=== PATIENT | female | born 1965 | race Caucasian/White ===

== ENCOUNTER → 2016-08-31 | Emergency (ER) | payer SELFPAY | END | disposition home or self-care (01) | LOC: D.ER 15:38 | DX: Z02.9 Encounter for administrative examinations, unspecified (principal) ==

== ENCOUNTER 2017-01-08 04:35 | Emergency (ER) | payer SELFPAY | END 2017-01-08 05:16 | disposition home or self-care (01) | LOC: D.ER 04:35 | DX: J20.9 Acute bronchitis, unspecified (principal); R09.89 Other specified symptoms and signs involving the circulatory and respiratory systems; J34.89 Other specified disorders of nose and nasal sinuses; R06.2 Wheezing; R51 Headache; F17.200 Nicotine dependence, unspecified, uncomplicated ==

== ENCOUNTER 2018-12-06 17:16 | Inpatient (IN) | payer SELFPAY ==
[~2018-12-06] VITALS: Ht 172.7 cm; Wt 85.3 kg
--- NOTE | ~2018-12-06 | HEMODYNAMI ---
PATIENT:IRISH DOBBS MEDICAL RECORD: [id number] : 61 [facility] [id number] ADMISSION DATE: 12/06/18 Generatedon:12/07/201810:50 Patient name: IRISH DOBBS Patient #: [id number] SSN: : 1965 Date of study: 12/07/2018 Page: Of Hemodynamic Procedure Report Patient Data Patient Demographics Procedure consent was obtained First Name: IRISH Gender: Female Last Name: DILIA : 1965 [facility] Initial: JD Age: 52 year(s) Patient #: [id number] Race: Black Additional ID: [id number] Contact details Address: [address] [place] [address] [address]ET State: [place] City: [facility] Zip code: [address] Past Medical History Allergies: No known allergies Admission Admission Data Admission Date: 12/06/2018 Admission Time: 22:02 Room #: D.2115 Lab Results Lab Result Date: 12/07/2018 Lab Result Time: 0:00 Biochemistry Name Units Result Min Max BUN mg/dl 11 --(-*--)-- 7 18 Creatinine mg/dl 0.9 --(-*--)-- 0.6 1.3 eGFR ml/min 90 --(*---)-- 90 120 AM CBC Name Units Result Min Max Hematocrit % 38.3 *-(----)-- 42 54 Hemoglobin g/dl 13.3 -*(----)-- 13.5 17.5 Procedure Procedure Types Cath Procedure Diagnostic Procedure LHC LHC w/Coronaries Procedure Description Procedure Date Procedure Date: 12/07/2018 Procedure Start Time: 10:40 Procedure End Time: 10:50 Procedure Staff Name Function Vicente Rincon MD Performing Physician Sahara Peña RT Monitor Gera Rock RT Scrub Kilo Ellison RN Nurse Procedure Data Cath Procedure Fluoroscopy Diagnostic fluoroscopy Total fluoroscopy Time: 1 time: 1 min min Diagnostic fluoroscopy Total fluoroscopy dose: 207 dose: 207 mGy mGy Contrast Material Contrast Material Type Amount (ml) Isovue 300 36 Entry Location Entry Primary Successful Side Size Upsize Upsize Entry Closure Succes sful Closure Location (Fr) 1 (Fr) 2 (Fr) Remarks Device Remarks Femoral Right 5 Fr Exoseal artery Estimated blood loss: 10 ml Diagnostic catheters Device Type Used For End Catheter Placement MULTIPACK Pigtail 5 Fr Procedure catheter MULTIPACK JL 4.0 5Fr Procedure catheter MULTIPACK 3DRC 5Fr Procedure catheter Procedure Complications No complications Procedure Medications Medication Administration Route Dosage Zofran I.V. 4 mg Oxygen etCO2 Nasal cannula 2 l/min Lidocaine 2% added to field 20 Heparin Flush Bag added to field 2 bags (1000units/500ml NS) 0.9% NaCl I.V. 100 ml/hr Versed I.V. 2 mg Fentanyl I.V. 100 mcg Versed I.V. 1 mg Fentanyl I.V. 25 mcg Hemodynamics Rest HGB: 13.3 (g/dl) Heart Rate: 65 (bpm) Snapshots Pre Cath Intra NCS Post Cath Vital Signs Time Heart Resp SPO2 etCO2 NIBP Rhythm Pain Status Sedation Rate (ipm) (%) (mmHg) (mmHg) Level (bpm) 10:30:38 63 16 97 0 134/67(90) NSR 4 (11) , 10(A) Distressing 10:34:56 67 12 98 0 114/71(85) NSR 4 (11) , 10(A) Distressing 10:39:10 66 15 95 30 108/70(89) NSR 3 (11) , 10(A) Tolerable 10:43:24 65 17 96 43.5 101/65(81) NSR 0 (11) , No 9(A) pain 10:47:32 69 15 97 41.2 119/70(97) NSR 0 (11) , No 10(A) pain Medications Time Medication Route Dose Verified Delivered Reason Notes Eff ectiveness by by 10:30:39 Zofran I.V. 4 mg Vicente Boateng Per Sergey Ellison RN physician 10:35:31 Oxygen etCO2 2 Vicente Boateng used for Nasal l/min Sergey Ellison RN procedure cannula 10:35:38 Lidocaine 2% added 20ml Vicente Zhang for local to vial Sergey Rincon MD anesthetic field 10:35:44 Heparin Flush added 2 Vicente Boateng used for Bag to bags Sergey Ellison RN procedure (1000units/500ml field NS) 10:35:52 0.9% NaCl I.V. 100 Vicente Boateng Per ml/hr Sergey Ellison RN physician 10:38:47 Versed I.V. 2 mg Vicente Boateng for Sergey Ellison RN sedation 10:38:53 Fentanyl I.V. 100 Vicente Lainezie for mcg Sergey Ellison RN sedation 10:43:03 Fentanyl I.V. 25 Vicente Boateng for mcg Sergey Ellison RN sedation 10:43:58 Versed I.V. 1 mg Vicente Boateng for Sergey Ellison RN sedation Procedure Log Time Note 10:00:25 Kilo Ellison RN sent for patient. Start room use. 10:08:14 Signed procedure consent form obtained from patient. 10:08:15 Diagnostic Cath status Urgent 10:08:15 Time tracking: Regular hours (M-F 7:00 - 5:00) 10:08:19 Plan of Care:Hemodynamics will remain stable., Cardiac rhythm will remain stable., Comfort level will be maintained., Respiratory function will remain adequate., Patient/ family verbilizes understanding of procedure., Procedure tolerated without complication., Recovers from procedure without complications.. 10:11:52 Lab Result : BUN 11 mg/dl 10:11:52 Lab Result : Creatinine 0.9 mg/dl 10:11:52 Lab Result : Hemoglobin 13.3 g/dl 10:11:52 Lab Result : eGFR AM 90 ml/min 10:11:52 Lab Result : Hematocrit 38.3 % 10:20:48 Patient received from Med II to CCL 1 Alert and oriented. Tansferred to table in Supine position. 10:20:49 Warm blankets applied, and lexa hugger turned on for patient comfort. 10:20:50 Correct patient and procedure confirmed by team. 10:20:53 ECG and BP/O2 sat monitors applied to patient. 10:29:24 Vital chart was started 10:30:39 Zofran 4 mg I.V. was administered by Kilo Ellison RN; Per physician; 10:31:49 Rhythm: sinus rhythm 10:31:50 Full Disclosure recording started 10:31:51 Baseline sample Acquired. 10:31:53 Pre-procedure instructions explained to patient. 10:31:53 Pre-op teaching completed and patient verbalized understanding. 10:31:55 Family in patients room. 10:31:56 Patient NPO since Midnight. 10:32:06 Patient allergic to No known allergies 10:32:12 Is patient on blood thinner?Yes 10:32:18 PRE LOADED PLAVIX 10:32:21 Is the patient allergic to Iodine/contrast media? No. 10:32:23 Patient diabetic? No. 10:32:27 Patient not . Patient has had hysterectomy. 10:32:32 Previous problem with sedation/anesthesia? No ? 10:32:33 Snore? No 10:32:37 Sleep apnea? No 10:32:38 Deviated septum? No 10:32:39 Opens mouth fully? Yes 10:32:39 Sticks out tongue? Yes 10:32:41 Airway obstruction? No ? 10:32:42 Dentures? No ? 10:32:45 Pre procedure: right dorsailis pedis pulse 3+ Increased pulse; moderate pressure to obliterate 10:32:48 Patient pain scale 4/10 ?. 10:32:54 IV patent on arrival in right wrist with 0.9% NaCl at O. 10:32:57 Lab results completed and on chart. 10:33:00 Right groin area was prepped with chlora-prep and draped in sterile fashion 10:33:01 Alarms reviewed by R. N. 10:33:01 Sharps counted by scrub and verified by R.N. 10:33:10 Use device set Femoral Dx 10:33:11 ACIST Syringe (61623) opened to sterile field. 10:33:12 Bag Decanter () opened to sterile field. 10:33:13 ACIST Manifold (41222) opened to sterile field. 10:33:14 ACIST Hand Control (17241) opened to sterile field. 10:33:14 Tegaderm 4 x 4 (1626W) opened to sterile field. 10:33:15 Medline Cath Pack ([id number]) opened to sterile field. 10:33:16 DIAGNOSTIC Multipack 5Fr catheter set (IG7070) opened to sterile field. 10:33:18 EMERALD Guide Wire (502-625) opened to sterile field. 10:33:19 SHEATH 5FR [place] (PYL940) opened to sterile field. 10:35:31 Oxygen 2 l/min etCO2 Nasal cannula was administered by Kilo Ellison RN; used for procedure; 10:35:38 Lidocaine 2% 20ml vial added to field was administered by Vicente Rincon MD; for local anesthetic; 10:35:44 Heparin Flush Bag (1000units/500ml NS) 2 bags added to field was administered by Kilo Ellison RN; used for procedure; 10:35:52 0.9% NaCl 100 ml/hr I.V. was administered by Kilo Ellison RN; Per physician; 10:37:55 --------ALL STOP TIME OUT------ 10:37:56 Final Timeout: patient, procedure, and site verified with staff and physician. All members of the team are in agreement. 10:37:57 Right groin site verified by team. 10:38:00 Fire Safety Assessment: A--An alcohol-based skin anteseptic being used preoperatively., C--Open oxygen or nitrous oxide is being used., D--An ESU, laser, or fiber-optic light is being used. 10:38:03 Physical assessment completed. ASA score P 2 - A patient with mild systemic disease as per Vicente Rincon MD. 10:38:08 1) 90+ Normal kidney functon but urine findings or structural abnormalities or genetic trait point to kidney disease. 10:38:12 Maximum allowable contrast does (3.7 X eGFR X 0.75)249 ml. 10:38:14 Sedation plan: IV Moderate Sedation Medication:Versed, Fentanyl 10:38:47 Versed 2 mg I.V. was administered by Kilo Ellison RN; for sedation; 10:38:53 Fentanyl 100 mcg I.V. was administered by Kilo Ellison RN; for sedation; 10:40:00 Zero performed for pressure channel P1 10:40:30 Procedure started. 10:40:50 Local anesthetic to right femoral artery with Lidocaine 2% by Vicente Rincon MD.INITIAL ACCESS ONLY 10:41:13 PATIENT HAS RECENTLY HAD LT. SHOULDER SURGERY. NEEDS RIGHT ARM FOR MOVEMENT 10:41:40 Zero performed for pressure channel P1 10:41:55 A 5 Fr sheath was inserted into the Right Femoral artery 10:42:15 A MULTIPACK Pigtail 5 Fr catheter was advanced over the wire and used for Procedure. 10:42:24 LV gram done using MOYA 10:42:27 Injector settings: Ml/sec: 10, Volume: 20, 10:42:45 EF : 50 % 10:42:46 Catheter removed. 10:43:03 Fentanyl 25 mcg I.V. was administered by Kilo Ellison RN; for sedation; 10:43:12 A MULTIPACK JL 4.0 5Fr catheter was advanced over the wire and used for Procedure. 10:43:49 LCA angiography performed. 10:43:57 Catheter removed. 10:43:58 Versed 1 mg I.V. was administered by Kilo Ellison RN; for sedation; 10:44:09 A MULTIPACK 3DRC 5Fr catheter was advanced over the wire and used for Procedure. 10:44:25 RCA angiography performed. 10:44:26 Catheter removed. 10:44:37 EXOSEAL 5Fr (EX500) opened to sterile field. 10:45:01 Sheath removed intact; hemostasis achieved with Exoseal to the Right Femoral artery. 10:45:04 Procedure ended.(Physican Out) 10:45:18 Fluoroscopy time 01.00 minutes. 10:45:24 Fluoroscopy dose: 207 mGy 10:45:24 Flurop Dose total: 207 10:45:27 Contrast amount:Isovue 300 36ml. 10:45:29 Sharps counted by scrub and verified by R.N. 10:45:32 Post-op/insertion site Right Femoral artery dressed using a 4 x 4 and Tegaderm. 10:45:34 Post-procedure physical assessment completed. ASA score P 2 - A patient with mild systemic disease as per Vicente Rincon MD. 10:45:37 Post procedure rhythm: sinus rhythm 10:45:40 Estimated blood loss: 10 ml 10:46:21 Post procedure instruction explained to patient.Patient verbalizes understanding. 10:46:22 Patient needs reinforcement of post procedure teaching. 10:49:00 Procedure and supply charges have been captured, reviewed, submitted and are correct. 10:49:03 Procedure Complication : No complications 10:50:05 Vital chart was stopped 10:50:05 See physician's report for complete and final results. 10:50:07 Report given to PCU. 10:50:10 Patient transfered to PCU with Bed. 10:50:13 Procedure ended. 10:50:13 Full Disclosure recording stopped 10:50:15 End room use (Document Last) Device Usage Item Name Manufacture Quantity Catalog Hospital Part Current Minimal L ot# / Number Charge Number Stock Stock Serial# Code ACINNA Acist 1 23099 893568 021138 932039 20 Syringe Medical (97215) Systems Inc Bag Microtek 1 2001S 128929 31315 353481 5 Decanter Medical Inc. () ACIST Acist 1 27300 219862 770854 341443 5 Manifold Medical (87698) Systems Inc ACIST Hand Acist 1 78709 022916 608517 960156 5 Control Medical (41382) Systems Inc Tegaderm 4 3M 1 1626W 744517 426488 497384 5 x 4 (1626W) Medline Medline 1 [id number] 831803 94920 177497 5 Cath Pack ([id number]) DIAGNOSTIC Cardinal 1 FY8158 781073 75749 268178 30 Multipack Health 5Fr catheter set (WY6869) EMERALD Cardinal 1 502455 118042 482999 546996 5 Guide Wire Health (502455) SHEATH 5FR Terumo 1 GIN830 050798 280561 600718 5 [place] (QYD902) MULTIPACK Cardinal 1 838944 5 Pigtail 5 Health Fr catheter MULTIPACK Cardinal 1 263776 5 JL 4.0 5Fr Health catheter MULTIPACK Cardinal 1 948746 5 3DRC 5Fr Health catheter EXOSEAL 5Fr Cardinal 1 EX500 597963 097683 382633 10 (EX500) Health Signature Audit [place] Stage Time Signature Unsigned Intra-Procedure 12/07/2018 Sahara Peña 10:50:34 AM RT(R) Signatures Monitor : Sahara Peña Signature : RT Date : Time : [place] [id number] [place] [address]
--- NOTE | 2018-12-06 17:42 | NUR ---
EDP AT BEDSIDE, VERBAL ORDER GIVEN TO THIS NURSE TO NOT GIVE ASA OR SL NITRO.
[2018-12-06 18:07] VITALS: BP 142/81
[2018-12-06 18:07] LABS: BASOPHILS 0.3 % (0-2); EOSINOPHILS 2.1 % (0-7); HEMATOCRIT 38.3 % (36.0-48.0); HEMOGLOBIN 13.3 g/dL (12-16); IMMATURE GRANULOCYTES 0.3 % (0-5); LYMPHOCYTES 32.3 % (15-50); MCH 31.6 pg (26.0-34.0); MCHC 34.7 g/dL (31.0-37.0); MEAN PLATELET VOLUME 9.6 fL (7.4-10.4); MONOCYTES 7.1 % (2-11); NEUTROPHILS 57.9 % (40-80); PLATELET COUNT 272 10x3/uL (130-400); RBC 4.21 10x6/uL (4.00-5.40); WBC 7.2 10x3/uL (4.8-10.8)
[2018-12-06 18:24] LABS: APTT 30.4 SECONDS (22.8-39.4); INR 0.89 (0.85-1.17); PROTIME 11.6 SECONDS (11.6-15.0)
[2018-12-06 18:25] LABS: ALBUMIN 3.7 g/dL (3.4-5.0); ALKALINE PHOSPHATASE 159 U/L (46-116); ALT (SGPT) 26 U/L (10-68); BILIRUBIN - TOTAL 0.25 mg/dL (0.2-1.3); CALC OSMOLALITY 276 mosm/kg (275-300); CALCIUM 8.8 mg/dL (8.5-10.1); CARBON DIOXIDE 27.9 mmol/L (21.0-32.0); CHLORIDE - SERUM 105 mmol/L (98-107); CREATININE - SERUM 0.8 mg/dL (0.6-1.3); GLUCOSE 107 mg/dL (74-106); POTASSIUM - SERUM 4.2 mmol/L (3.5-5.1); PROTEIN - SERUM 7.3 g/dL (6.4-8.2); SODIUM 139 mmol/L (136-145); UREA NITROGEN 11 mg/dL (7-18); eGFR NON AFRICAN AMERICAN 79 mL/min (90-120)
[2018-12-06 18:36] LABS: CKMB 0.7 U/L (0.0-3.6); CREATINE KINASE 174 UL (21-215); MAGNESIUM - SERUM 2.1 mg/dL (1.8-2.4)
[2018-12-06 18:46] LABS: TROPONIN-I < 0.017 ng/mL (0.000-0.060)
--- NOTE | 2018-12-06 19:09 | NUR ---
HAND-OFF REPORT GIVEN TO PO GOODMAN.
[2018-12-06 19:30] VITALS: BP 109/67
--- NOTE | 2018-12-06 20:07 | NUR ---
PROVIDED BLANKET ROLLS FOR POSITION AND COMFORT OF LEFT ARM. PT STATES STILL FEELING PAIN IN RIGHT SHOULDER BUT LESS, RATES PAIN 8/10 SCALE, DOWN FROM 10/10.
[2018-12-06 20:30] VITALS: BP 121/63
--- NOTE | 2018-12-06 20:56 | NUR ---
PT STATES PAIN CONTINUES TO BE 8/10 TO RIGHT CHEST AND RIGHT UPPER BACK. STATES IT FEELS LIKE WHEN SHE HAD PNEUMONIA IN BILATERAL LUNGS LAST JANUARY. REPOSITIONED WITH SOME RELIEF. PAIN EXAGGERATED BY DEEP BREATHING AND COUGHING.
[2018-12-06 21:31] VITALS: BP 114/60
--- NOTE | 2018-12-06 21:57 | NUR ---
PT AMB TO RESTROOM WITHOUT DIFFICULTY AT THIS TIME. PT INFORMED OF ADMIT STATUS AND WAITING FOR ROOM ASSIGNMENT, VOICED UNDERSTANDING.
[2018-12-06] MEDS ORDERED: SYNTHROID75 MCG PO (23:45)
[2018-12-06] MEDS ORDERED: CELEBREX400 MG PO (23:46)
[2018-12-06 23:57] VITALS: BP 126/48; Ht 172.7 cm; Wt 85.3 kg
[2018-12-07 04:00] VITALS: BP 102/63
--- NOTE | 2018-12-07 06:39 | NUR ---
WAS TOLD BY ELECTRONIC ENGRAVER THAT PATIENT HAD REQUESTED PAIN MEDICATION. WHEN ADMINISTERING THE MEDICATION PATIENT BEGAN YELLING STATING THAT SHE ASKED FOR PAIN MEDICATION WHEN SHE ARRIVED TO FLOOR. PATIENT DID NOT ASK ME ON ARRIVAL. I ASKED ELECTRONIC ENGRAVER AND ELECTRONIC ENGRAVER STATED SHE DID NOT ASK HER. PATIENT ARGUED THAT SHE HAD BEEN AWAKE ALL NIGHT. ALTHOUGH WHEN I CHECKED ON THE PATIENT SHE HAD BEEN SLEEPING.
[2018-12-07 08:27] VITALS: BP 127/56
--- NOTE | 2018-12-07 10:51 | HP ---
PATIENT: IRISH LUIS MEDICAL RECORD: [id number] ACCOUNT: [id number] LOCATION:[address] : 61 ADMISSION DATE: 12/06/18 PCP: CRISTY BLACKMON MD HISTORY AND PHYSICAL EXAMINATION DIAGNOSES: 1. Non-Q-wave myocardial infarction. 2. Coronary artery disease. HISTORY OF PRESENT ILLNESS: Mrs. Luis has no previous cardiac history. She has been having left-sided chest pain that she attributed to a shoulder surgery that she had over a year ago with chest pain; however, it worsened yesterday. Troponin is positive for non-Q-wave myocardial infarction. She continues to have chest pain today. PHYSICAL EXAMINATION: GENERAL APPEARANCE: Well-nourished, well-developed, appears stated age. Level of distress, comfortable. PSYCHIATRIC: Mental status, alert, normal affect. Orientation, oriented to time, place and person. EYES: Lids and conjunctiva, noninjected. No discharge, no pallor. ENT: Lips, teeth, gums, normal dentition. Oropharynx, no cyanosis, no pallor. NECK: Carotid arteries, bilateral normal upstroke, no bruits, no thrills. JUGULAR VEINS: No jugular venous pressure or distention. CERVICAL LYMPH NODES: Nontender, nonenlarged. THYROID: Not enlarged. Nontender. No nodules. LUNGS: Respiratory effort, unlabored. CHEST: Normal curvature. No thoracic deformity. No chest wall tenderness. Percussion, resonant. Auscultation, clear. No wheezes, no rales, no rhonchi. CARDIOVASCULAR: Precordial exam, nondisplaced. No heaves or pericardial thrills. Rate and rhythm, regular. Heart sounds, normal S1, normal S2. No S3, no gallop, no rub. Systolic murmur, not heard. Diastolic murmur, not heard. EXTREMITIES: No cyanosis, no edema. Peripheral pulses, full and equal in all extremities, except as noted. No bruits appreciated. ABDOMEN: Soft, nondistended. Normal aorta. No bruit. Nontender. No masses. Liver, nontender, no hepatomegaly. Spleen, nontender, no splenomegaly. MUSCULOSKELETAL: No joint tenderness. No joint swelling. No erythema. NEUROLOGICAL: Normal gait, normal strength, normal tone. SKIN: Warm and dry. OVERALL IMPRESSION: Non-Q-wave myocardial infarction with continued anginal chest discomfort. We will proceed with coronary angiography. Further care depends upon findings of the angiography. TRANSINT:[id number] Voice Confirmation ID: [id number] DOCUMENT ID: [id number] HISTORY AND PHYSICAL [id number] IRISH LUIS JEFFREY MD at 1051 CC: [id number] DICTATION DATE: 12/07/18837 PARTS REMOVER: 12/07/18 0849 ADM IN [place] [id number] [place] [id number]
[2018-12-07 11:51] VITALS: BP 111/55
--- NOTE | 2018-12-07 14:02 | MORECARE ---
CASE MANAGEMENT DISCHARGE SUMMARY PATIENT: IRISH DOBBS UNIT: [id number] ADM DATE: 12/06/18 AGE: 52 : 61 SEX: F ROOM/BED: D.2655 AUTHOR: RICARDO SEVILLA PHYSICIAN: REFERRING PHYSICIAN: JOSUE JACKSON MD DATE OF SERVICE: 12/07/18 Discharge Plan Patient Name: IRISH DOBBS [facility] [facility] 1965 Planned Disposition: Home Anticipated Discharge Date: 12/07/18 Discharge Date: Expected LOS: 1 Initial Reviewer: [email or web address] Initial Review Date: 12/07/2018 Generated: 12/07/18 3:01 pm Patient Name: IRISH DOBBS Page [id number] at 1402 All edits/amendments must be made on the electronic document DICTATION DATE: 12/07/18 1401 OYSTER FARMER: BRAEDEN 12/07/18 1401 RPT#: [id number] DC DATE: STATUS: ADM IN [facility] [address] [place] [address] END OF REPORT
--- NOTE | 2018-12-07 14:16 | MORECARE ---
CASE MANAGEMENT DISCHARGE SUMMARY PATIENT: IRISH DOBBS UNIT: [id number] ADM DATE: 12/06/18 AGE: 52 : 61 SEX: F ROOM/BED: D.7542 AUTHOR: ROEL,DOC PHYSICIAN: REFERRING PHYSICIAN: JOSUE JACKSON MD DATE OF SERVICE: 12/07/18 Discharge Plan Patient Name: IRISH DOBBS [facility] [facility] 1965 Planned Disposition: Home Anticipated Discharge Date: 12/07/18 Discharge Date: Expected LOS: 1 Initial Reviewer: [email or web address] Initial Review Date: 12/07/2018 Generated: 12/07/18 3:16 pm Comments DCP- Discharge Planning Updated by [email or web address]: Rodrigo Flores on 12/07/18 1:[address] Patient Name: IRISH DOBBS Admission Status: ER Accout number: [id number] Admission Date: 12-06-2018 : 1965 Admission Diagnosis: Attending: SOSA JACKSON Current LOS: 1 Anticipated DC Date: 12-07-2018 Planned Disposition: Home Primary Insurance: UNINSURED DISCOUNT PLAN Discharge Planning Comments: CM MET WITH PT IN ROOM TO DISCUSS DISCHARGE PLANNING AND NEEDS. PT REPORTS LIVING AT HOME INDEPENDENTLY WITH HER SON. PT HAS NO MEDICAL EQUIPMENT AND NO OUTSIDE SERVICES ASSISTING IN THE HOME. CM DISCUSSED AVAILABILITY OF HOME HEALTH, REHAB SERVICES AND MEDICAL EQUIPMENT. PT DENIES DISCHARGE NEEDS, REPORTS HER FATHER IN LAW IS HERE AND WILL PICK HER UP FOR DISCHARGE HOME TODAY. PT REPORTS HAVING FILED FOR MEDICAID ALREADY TO HELP COVER HER HOSPITAL COSTS. PT REPORTS SHE WILL HAVE INSURANCE SOON THROUGH HER EMPLOYER. Pairer Substandard: Rodrigo Flores DCPIA - Discharge Planning Initial Assessment Updated by [email or web address]: Rodrigo Flores on 12/07/18 2:08 pm * Is the patient Alert and Oriented? Yes * How many steps to enter\exit or inside your home? * PCP DR. BLACKMON [place] * Pharmacy [facility] * Preadmission Environment Home with Family * ADLs Independent * Equipment None * Other Equipment NO MEDICAL EQUIPMENT PROVIDER PREFERENCE * List name and contact numbers for known caregivers / representatives who currently or will assist patient after discharge: SANDY DOBBS, SON, * Verbal permission to speak to the caregivers and representatives has been obtained from the patient. N/A * Community resources currently utilized None * Please name any agencies selected above. NONE * Additional services required to return to the preadmission environment? No * Can the patient safely return to the preadmission environment? Yes * Has this patient been hospitalized within the prior 30 days at any hospital? No Last DP export: 12/07/18 1:02 pm Patient Name: IRISH DOBBS Page 10713 at 1416 All edits/amendments must be made on the electronic document DICTATION DATE: 12/07/18 1416 ASSISTANT ART DIRECTOR: BRAEDEN 12/07/18 1416 RPT#: [id number] DC DATE: STATUS: ADM IN [address] [place] [address] END OF REPORT
--- NOTE | 2018-12-07 14:30 | NUR ---
REVIEWED DISCARGE INSTRUCTIONS WITH PT STATES UNDERSTANDING COPY GIVEN DCD SALINE LOCK TO RFA WITH IV CATHETER TIP INTACT SITE FREE OF REDNESS OR EDEMA PT DISCHARGED HOME LEFT UNIT VIA W/C IN STABLE CONDITION WITH ALL PERSONAL BELONGINGS
--- NOTE | 2018-12-18 18:38 | OP ---
PATIENT NAME: IRISH DOBBS MEDICAL RECORD: [id number] :61 LOCATION:D.M2 [address].2115 ADMISSION DATE:12/06/18 SURGEON: JOSUE JACKSON MD DATE OF OPERATION: 12/07/2018 PROCEDURES: 1. Left heart catheterization. 2. Selective coronary angiography. 3. Left ventriculogram. INDICATION: Angina and coronary artery disease. PROCEDURE PERFORMED: After informed consent was obtained with detailed description of risks and benefits as well as alternative therapies, the patient elected to proceed with angiogram and heart catheterization. The right femoral area was prepped and draped in normal sterile fashion. The right femoral artery was cannulated via modified Seldinger technique with placement of 5-Estonian sheath. FINDINGS: Left ventriculogram performed in standard 30-degree MOYA view reveals good cardiac wall motion. Ejection fraction is 55%. SELECTIVE CORONARY ANGIOGRAPHY: Left main, left anterior descending, left circumflex, and right coronary artery are all smooth-walled vessels with no angiographic evidence of coronary artery disease. OVERALL IMPRESSION: 1. No angiographic evidence of coronary artery disease. 2. Normal left heart pressures. 3. Normal left ventricular systolic function. Chest pain is noncardiac in etiology. No further cardiac workup needs to be ascertained. TRANSINT:[id number] Voice Confirmation ID: [id number] DOCUMENT ID: [id number] JOSUE JACKSON MD at 1838 CC: [id number] DICTATION DATE: 12/07/18 1050 SERVER PROGRAMMER: 12/07/18 1406 DIS IN 12/07/18 [place] [id number] [place] [address]
--- NOTE | 2018-12-18 18:38 | DS ---
PATIENT:IRISH LUIS :61 MEDICAL RECORD: [id number] DISCHARGE SUMMARY ADMISSION DATE: 12/06/18 DISCHARGE DATE: 12/07/18 Discharge DATE OF SERVICE: 12/07/2018 DIAGNOSES: 1. Chest pain. 2. Recent shoulder surgery. 3. Elevated troponin compatible with non-Q-wave myocardial infarction. 4. Normal cardiac catheterization. HISTORY OF PRESENT ILLNESS: Mrs. Luis presents with chest pain initially attributed to pain from her shoulder surgery; however, troponin was elevated; however, cardiac catheterization was absolutely normal, unknown etiology of the elevated troponin. This is not cardiac in etiology. Her chest pain is from her shoulder surgery. No other cardiac workup or treatment is necessary. TRANSINT:[id number] Voice Confirmation ID: [id number] DOCUMENT ID: [id number] JOSUE JACKSON MD at 1838 CC: [id number] DICTATION DATE: 12/07/18 1047 HEALTHCARE SOCIAL WORKER: 12/07/18 2312 DIS IN 12/07/18 [place] [id number] [place] [address]
== END 2018-12-07 14:30 | disposition home or self-care (01) | DRG 287 ==
LOC: D.ER 17:16 → D.M2 22:02
PROVIDERS: Family Medicine; ADMIT Internal Medicine Interventional Cardiology; ATTEND Internal Medicine Interventional Cardiology
PROC: B2151ZZ Fluoroscopy of Left Heart using Low Osmolar Contrast (ICD-10-PCS; 2018-12-07)
PROC: 4A023N7 Measurement of Cardiac Sampling and Pressure, Left Heart, Percutaneous Approach (ICD-10-PCS; 2018-12-07)
PROC: B2111ZZ Fluoroscopy of Multiple Coronary Arteries using Low Osmolar Contrast (ICD-10-PCS; principal; 2018-12-07 10:00)
DX: R07.89 Other chest pain (principal); R79.89 Other specified abnormal findings of blood chemistry